=== PATIENT | female | born 1995 | race Caucasian/White ===

== ENCOUNTER 2021-04-25 00:15 | Outpatient (CLI) | payer OTHER, MEDICAID, SELFPAY ==
[2021-04-25 00:32] VITALS: BMI 35.1
[2021-04-25 00:33] VITALS: PULSE 82; RESP 16; O2SAT 99
[2021-04-25 00:34] VITALS: BP 110/73; PULSE 84; TEMP 36
[2021-04-25 00:52] LABS: Nitrazine Paper, PH Negative
[2021-04-25 01:08] LABS: Protein Urine Neg (Negative); Urine Appearance Clear (CLEAR); Urine Color Yellow (Yellow); pH Urine 5 (5-7)
[2021-04-25 01:09] LABS: Add Urine Culture? No; Bacteria Urine 2+ /hpf; Bilirubin Urine 1+ (Negative); Blood Urine Neg (Negative); Glucose Urine UA Norm (Normal); Ketones Urine 1+ (Negative); Leukocyte Esterase Urine Trace (Negative); Mucus Urine 3+ /hpf; Nitrate Urine Negative (Negative); RBC Urine 0-4 /hpf (0-2); Squamous Epithelial Cell Urine 15-25 /hpf (0-5); Urobilinogen Urine 4 mg/dL (Negative)
[2021-04-25 01:26] VITALS: TEMP 35.6
[2021-04-25 01:27] VITALS: BP 110/59; PULSE 77
[2021-04-25 01:45] VITALS: BP 110/59; PULSE 77; RESP 16; TEMP 36; O2SAT 98
== END 2021-04-25 01:45 | disposition home or self-care (01) ==
LOC: OPOB 00:24 → OBGYN 00:25
PROVIDERS: PCP Family Medicine; Visit Provider Family Medicine
DX: O26.899 Other specified pregnancy related conditions, unspecified trimester (principal); Z3A.00 Weeks of gestation of pregnancy not specified; R10.9 Unspecified abdominal pain
CPT/HCPCS: 59025; 81001; 83986; 99211

== ENCOUNTER 2021-04-26 09:27 | Inpatient (IN) | payer OTHER, MEDICAID, SELFPAY ==
[2021-04-26] VITALS (123 sets, daily range): BP systolic 73–245; BP diastolic 46–138; PULSE 51–181; RESP 16–18; TEMP 35.9–37.2; O2SAT 92–100
[2021-04-26 09:31] LABS: Nitrazine Paper, PH Positive
[2021-04-26 09:49] LABS: Basophils % 0.4 %; Eosinophils # 0.2 10^3/uL (0.0-0.8); Eosinophils % 2.3 %; Hemoglobin 11.2 g/dL (11.5-15.3); Lymphocytes # 1.7 10^3/uL (0.8-4.8); Lymphocytes % 20.2 %; Mean Corpuscular Hemoglobin 27.9 pg (28.0-34.0); Mean Corpuscular Volume 87.3 fL (81-99); Mean Platelet Volume 9.7 fL (7.4-10.4); Monocytes # 0.7 10^3/uL (0.2-0.9); Monocytes % 8.6 %; Neutrophils # 5.58 10^3/uL (1.8-7.7); Neutrophils % 68.3 %; Nucleated Red Blood Cells % 0 %; Platelet Count 260 10^3/cmm (130-400); Red Blood Count 4.01 10^6/uL (4.1-5.3); Red Cell Distribution Width 12.7 % (12.1-15.1); White Blood Count 8.2 10^3/uL (4.0-10.0)
[2021-04-26] MEDS: lactated ringers 1,000 ML 999 ML IV (10:01)
[2021-04-26] MEDS: fentaNYL 50 mcg/mL INJ 2mL IVP (10:01)
[2021-04-26] MEDS: ondansetron 2 mg/ML SDV 2 mL 4 MG IVP ×2 (10:10→14:02)
[2021-04-26] MEDS: dextrose 5%-lactated ringers 1,000 ML 125 ML IV ×2 (10:55→18:14)
--- NOTE | 2021-04-26 11:25 | P.ANESASSM_ITS ---
Pre-Anesthetic Assessment Pre-Anesthetic Assessment: Height/Weight: Height 1.57 m Weight 84.368 kg Temp Pulse Resp BP Pulse Ox 97.9 F 61 18 98/60 100 04/26/21 10:00 04/26/21 11:21 04/26/21 10:01 04/26/21 11:16 04/26/21 11:21 Was Beta Kunal taken within 24 hours: N/A Was Clonidine taken within 24 hours: N/A Social: Social History: No alcohol and No tobacco Exam: Pre-Anes Outpt Exam: alert and oriented x 3 Pulmonary: Pulmonary: None reported CV/HEM: CV/HEM: None reported : : None reported Hepatic: Hepatic: None reported GI: GI: None reported Metabolic: Metabolic: None reported Musc/skel: Musc/skel: None reported Neuropsych: Neuropsych: None reported Anesthetic Plan: ASA status: 1 Anesthesia: Regional (specify below) (Labor Epidural ) Meds/Allergies Current Medications: Current Medications Generic Name Dose Route Start Last Admin Trade Name Freq PRN Reason Stop Dose Admin Fentanyl 25 - 100 mcg 04/26/21 09:32 04/26/21 10:01 Fentanyl 50 Mcg/ Ml Inj 2ml IVP 25 mcg Q1H PRN Administration SEVERE PAIN Dextrose/Lactated Ringer's 1,000 mls @ 125 m ls/hr 04/26/21 09:45 04/26/21 10:55 Dextrose 5%-Lact ated Ringers IV 125 mls/hr .Q8H LAYNE Administration Ropivacaine 200 mg in 100 mls @ 13 mls/hr 04/26/21 09:45 04/26/21 10:55 Naropin Premix EPIDURAL 13 mls/hr .Q7H42M LAYNE Administration Lactated Ringer's 1,000 mls @ 999 m ls/hr 04/26/21 09:32 04/26/21 10:01 Lactated Ringers IV 999 mls/hr .Q1H1M PRN Administration See label comment s Ondansetron HCl 4 mg 04/26/21 09:32 04/26/21 10:10 Ondansetron 2 Mg /Ml Sdv 2 Ml IVP 4 mg Q4H PRN Administration NAUSEA AND VOMITI NG PFSH Anesthesia Female Reproductive History: : 3 Data Anesthesia CBC & Chem 7: 04/26/21 09:26 Other Labs: Laboratory Results - last 48 hr 04/26/21 09:26 WBC 8.2 RBC 4.01 L Hgb 11.2 L Hct 35.0 L MCV 87.3 MCH 27.9 L MCHC 32.0 RDW 12.7 Plt Count 260 MPV 9.7 Neut % (Auto) 68.3 Lymph % (Auto) 20.2 [place] % (Auto) 8.6 Eos % (Auto) 2.3 Baso % (Auto) 0.4 Neut # (Auto) 5.58 Lymph # (Auto) 1.7 [place] # (Auto) 0.7 Eos # (Auto) 0.2 Baso # (Auto) 0.0 Nucleated RBC % (auto) 0 Nucleated RBCs # 0.0 Cardiac Studies: 2 No Data to Display
--- NOTE | 2021-04-26 11:30 | ANES.PROC ---
Anesthesia Procedures Procedure/Date: 04/26/21 Epidural: Time Out Performed: Yes Consents Signed: Procedure Consent and NPO Consent Consent: requested by attending/covering physician Lumbar Level: L4-L5 Epidural position: sitting Epidural procedure: sterile prep of area, 1% lidocaine to numb the area, neg for paresthesia, test dose given, 1.5% xylocaine 1:200k epi, no systemic response and sterile dressing applied Additional Comments: Easy single pass without paresthesia or complication. Baseline BP 90-100 will therefore defer bolus and start continuous epidural infusion.
[2021-04-26] MEDS: ePHEDrine 50 mg/mL Inj 10 MG IVP (14:51)
--- NOTE | 2021-04-26 19:32 | PM.DELIVERY ---
Delivery Note: Date of delivery: 04/26/2021 This 26-year-old 3 now para 2 female with an EDC of 05/04/2021 had spontaneous rupture membranes this morning about 0800. She arrived to [facility] in active labor. She did have obvious rupture of membranes with nitrazine positive fluid. She was allowed to progress slowly throughout the day without problems. Her contractions were regular and did not require any augmentation. She did receive epidural anesthesia late morning and had a artificial rupture of membranes of the fore bag in the early afternoon. She then slowly dilated to complete cervical dilatation throughout the afternoon into the early evening. She then pushed for about 25 minutes and delivered by spontaneous vaginal livery a healthy, viable female infant at 1901. Upon delivery of the head she did have a mild shoulder dystocia. However, the posterior shoulder was easily found and rotated in a clockwise fashion bringing the baby out without difficulty. The mouth and nose were suctioned at the perineum followed by suctioning after delivery of the . The was then laid on mother's abdomen where after approximately 1 minute the cord was clamped and then cut by the infant's father. There was no nuchal cord and the cord had 3 blood vessels. Infant Apgars were 7 and 9 at 1 and 5 minutes respectively. The placenta delivered spontaneously at 1907 without problems and appeared to be intact. There was a very small second-degree episiotomy with minimal extension. This was repaired using layered surgical closure and Vicryl suture with epidural anesthesia present. The weighed 9 pounds 8 ounces. There were no complications and presently mother and are doing well. blood sugar was 55. Pre-Delivery Course: This patient was followed by this physician maternal blood type was A- with antibody screen was negative. Hepatitis B, hepatitis C, RPR and HIV were negative. Rubella was immune and group B strep was negative. Covid testing was not done yet I believe. There were no complications through her course. Maternal glucose screen was normal at 114. Delivery: Spontaneous vaginal delivery. Post-Delivery Status: Patient is doing well and will be followed for routine postdelivery care. A&P Assessment and plan (1) Normal spontaneous vaginal delivery: Patient will be monitored closely and will be followed for routine care. Status: Acute Coding Level of Care Code Acute [employer] Service Unit Operator for Chg Fwd Diagnoses Normal spontaneous vaginal delivery O80
[2021-04-26] MEDS: ibuprofen 800 mg tablet PO (21:26)
[2021-04-27] VITALS (17 sets, daily range): BP systolic 85–129; BP diastolic 46–75; PULSE 60–92; RESP 14
[2021-04-27] MEDS: HYDROcodone-acetaminophen 5-325 mg Tablet PO (04:07)
--- NOTE | 2021-04-27 07:15 | P.DS_ITS ---
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 She labored through the day and delivered last evening by spontaneous vaginal delivery a healthy, viable female . She has done well overnight with only mild bleeding and just a few clots. She has not been cramping and is ambulating well and tolerating a regular diet. It is felt that she will be stable to be discha rged home this evening after 's metabolic screen. Information Peripartum Data: Infant Delivery Method: Vaginal Physical Exam Const: COMMON NORMALS: no acute distress and healthy appearing HENMT: COMMON NORMALS: moist oral mucous membranes Resp: COMMON NORMALS: normal respiratory effort, No retractions and clear to auscultation bilaterally AUSCULTATION: clear to auscultation bilaterally Cardio: COMMON NORMALS: regular rate, regular rhythm and No murmurs present (Cardio) RATE: regular rate RHYTHM: regular rhythm GI: COMMON NORMALS: Soft to palpation and non-tender (Fundus is firm.) PALPATION: Yes Soft to palpation Extremity: COMMON NORMALS: normal to inspection, no calf tenderness and no pedal edema Neuro: COMMON NORMALS: moves all extremities, no focal motor deficits and no sensory deficits noted Psych: COMMON NORMALS: mental status grossly normal and cooperative Skin: COMMON NORMALS: no rashes or lesions noted GENERAL SKIN EXAM: no rashes or lesions noted Urinary Catheter Management^: Burgos: Cath Placed During This Visit: yes, but has since been removed by the nurse Reason for Continuing Indwelling Catheter: Decision to DC Catheter Urinary Catheter Date of Insertion: 04/26/21 Urinary Catheter Time of Insertion: 11:50 Date Urinary Catheter Removed: 04/26/21 Time Urinary Catheter Discontinued: 18:30 Discharge Data Data Completed and Pending: Pending at discharge Category Date Time Status Hemagram Timed Lab 04/27/21 07:30 Uncollected Labs from last 24 hours 04/26/21 09:26 WBC 8.2 RBC 4.01 L Hgb 11.2 L Hct 35.0 L MCV 87.3 MCH 27.9 L MCHC 32.0 RDW 12.7 Plt Count 260 MPV 9.7 Neut % (Auto) 68.3 Lymph % (Auto) 20.2 [place] % (Auto) 8.6 Eos % (Auto) 2.3 Baso % (Auto) 0.4 Neut # (Auto) 5.58 Lymph # (Auto) 1.7 [place] # (Auto) 0.7 Eos # (Auto) 0.2 Baso # (Auto) 0.0 Nucleated RBC % (a uto) 0 Nucleated RBCs # 0.0 Vitals: Last Vital Signs Temp 98.9 F 04/26/21 19:30 Pulse 60 04/27/21 06:22 Resp 14 04/27/21 01:07 BP 112/70 04/27/21 06:22 Pulse Ox 100 04/26/21 11:46 Discharge Plan Discharge Patient Disposition: Home Condition: Stable Prescriptions: New ibuprofen 800 mg Tablet 800 mg PO TID Qty: 90 RF: 1 DOK 100 mg Capsule 100 mg PO BID Qty: 60 RF: 2 -U 106.5-1 mg Capsule 1 cap PO DAILY Qty: 90 RF: 1 Discharge Orders: Discharge Order (Routine); Ordered 04/27/21 Ordered By: Yared Hurtado Referrals: Yared Hurtado MD [Primary Care Provider] - 6 Weeks Discharge Diet: Usual diet Discharge Activity: Resume usual activity Patient Instructions: Opioid Safety Discharge Attestations BITUMEN PLANT OPERATOR Time Spent in Discharge Care*: less than 30 min Specific Discharge Activities: Specific discharge activities: educating patient, documenting/other paperwork and evaluating patient/reviewing data Coding Level of Care Code Acute Broadcast News Producer for Chg Fwd Diagnoses Normal spontaneous vaginal delivery O80
[2021-04-27 07:53] LABS: Hematocrit 30.9 % (37.0-47.0); Hemoglobin 9.9 g/dL (11.5-15.3); Mean Corpuscular Hemoglobin 27.9 pg (28.0-34.0); Mean Platelet Volume 9.8 fL (7.4-10.4); Platelet Count 222 10^3/cmm (130-400); Red Blood Count 3.55 10^6/uL (4.1-5.3); Red Cell Distribution Width 12.5 % (12.1-15.1); White Blood Count 11.5 10^3/uL (4.0-10.0)
[2021-04-27] MEDS: ibuprofen 800 mg tablet PO ×2 (09:42→16:14)
[2021-04-27] MEDS: docusate sodium 100 mg Capsule PO (09:42)
[2021-04-27] MEDS: prenatal vitamin Capsule 1 CAP PO (09:42)
== END 2021-04-27 21:07 | disposition home or self-care (01) | DRG 807 ==
LOC: OPOB 09:28 → OBGYN 09:28
PROVIDERS: Admitting Provider Family Medicine; PCP Family Medicine; Visit Provider Family Medicine
DX: O70.1 Second degree perineal laceration during delivery (principal); Z37.0 Single live birth; Z3A.38 38 weeks gestation of pregnancy
CPT/HCPCS: 36415; 51702; 59025; 59409; 83986; 85025; 85027; 96374; 96375; 99211; J2405; J2795; J3010

== ENCOUNTER 2023-01-02 14:38 | Outpatient (CLI) | payer OTHER, SELFPAY ==
--- NOTE | 2023-01-02 | US_ITS ---
WS: [id number] OBSTETRICAL ULTRASOUND COMPLETE HISTORY: anatomy COMPARISON: None available. Single intrauterine gestation in Cephalic presentation. Cervix is Closed and normal length. Cervical length is 4.8 cm. Normal amount of amniotic fluid surrounds the fetus. Placenta: Posterior, no previa or abruption. Placenta grade 1 Heart: 153 BPM. Four chambers are identified. Suboptimal evaluation of the outflow tracts. Anatomy: Intracranial structures and spine are normal. kidneys, stomach and urinary bladd er are unremarkable. Abdominal wall, three-vessel cord and cord insertion site are normal. 4 extremities are present. profile: Unremarkable. Gender: Female. measurements: BPD = 4.6 cm = 19w5d; HC = 17.0 cm = 19w4d; AC = 14.2 cm = 19w4d; FL = 3.2 cm = 19w6d; EFW: 307 g. Not available. Biometry is internally concordant. AGA by ultrasound: 19w5d SAMEERA by ultrasound: 05/24/2023 US/US OB >= 14 weeks fetus [id number] IMPRESSION: 1. Single intrauterine gestation of 19w5d with an SAMEERA of 05/24/2023. 2. Suboptimal evaluation of the cardiac outflow tracts. The remaining anatomy is normal.
== END 2023-01-02 14:39 | disposition home or self-care (01) ==
PROVIDERS: PCP Family Medicine; Visit Provider Family Medicine
DX: Z34.02 Encounter for supervision of normal first pregnancy, second trimester (principal); Z3A.19 19 weeks gestation of pregnancy
CPT/HCPCS: 76805

== ENCOUNTER 2023-05-04 17:03 | Inpatient (IN) | payer OTHER, SELFPAY ==
[2023-05-04] VITALS (52 sets, daily range): BP systolic 74–131; BP diastolic 42–74; PULSE 58–118; RESP 16; O2SAT 81–100; BMI 37.8
[2023-05-04] MEDS: hyDROXYzine 25 mg Capsule 50 MG PO ×2 (14:51→20:51)
[2023-05-04 16:44] LABS: Basophils % 0.3 %; Eosinophils # 0.2 10^3/uL (0.0-0.8); Eosinophils % 1.7 %; Hematocrit 29.1 % (37.0-47.0); Hemoglobin 9.3 g/dL (11.5-15.3); Lymphocytes # 1.9 10^3/uL (0.8-4.8); Mean Corpuscular Hemoglobin 25.8 pg (28.0-34.0); Mean Corpuscular Volume 80.8 fl (81-99); Mean Platelet Volume 9.7 fL (7.4-10.4); Monocytes # 1.2 10^3/uL (0.2-0.9); Monocytes % 10.4 %; Neutrophils # 7.82 10^3/uL (1.8-7.7); Neutrophils % 69.1 %; Nucleated Red Blood Cells % 0 %; Platelet Count 320 10^3/cmm (130-400); White Blood Count 11.3 10^3/uL (4.0-10.0)
--- NOTE | 2023-05-04 17:09 | P.HP_ITS ---
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 Patient states that she is jessica every 3 to 10 minutes on arrival. Initial check was 4 cm which is unchanged from when she was last checked in the office. Patient was rechecked 1 hour later and she was 5 cm. Patient was jessica every 3 to 5 minutes. Patient denies any complications during this . The patient has had 2 other vaginal deliveries with the last delivery being a viable infant female at 10 pounds. GBS was positive. Present Details : 4 Para: 2 care: good care Ultrasounds: normal 1st trimester US and normal mid trimester US Obstetrical complications: none Medical complications OB: none Labs Blood type OB HPI: A (-) negative Rubella: Immune RPR: Negative GBS: Positive HBsAG: Negative Review of Systems General: Reports: 10 or more systems reviewed and unremarkable except in HPI and below Medications/Allergies Home Medications Medication Instructions Recorded Confirmed Last Taken Type docusate sodium 100 mg capsule 100 mg PO BID #60 caps 04/27/21 Unknown Rx (DOK) ibuprofen 800 mg tablet 800 mg PO TID #90 tabs 04/27/21 Unknown Rx multivitamin no.51-ferrous 1 cap PO DAILY #90 caps 04/27/21 Unknown Rx fumarate 106.5 mg-folic acid 1 mg capsule (-U) Allergies Allergy/AdvReac Type Severity Reaction Status Date / Time No Known Allergies Allergy Verified 04/25/21 00:49 Vitals/I&O/Wt Last Vital Signs Pulse 89 05/04/23 16:42 BP 112/62 05/04/23 16:42 Pulse Ox 97 05/04/23 14:39 Physical Exam Const: COMMON NORMALS: no acute distress and healthy appearing HENMT: COMMON NORMALS: moist oral mucous membranes Resp: COMMON NORMALS: normal respiratory effort, No retractions and clear to auscultation bilaterally AUSCULTATION: clear to auscultation bilaterally Cardio: COMMON NORMALS: regular rate, regular rhythm and No murmurs present (Cardio) RATE: regular rate RHYTHM: regular rhythm GI: OTHER: Gravid Extremity: COMMON NORMALS: normal to inspection, no calf tenderness and no pedal edema Neuro: COMMON NORMALS: moves all extremities, no focal motor deficits and no sensory deficits noted Psych: COMMON NORMALS: mental status grossly normal and cooperative Skin: COMMON NORMALS: no rashes or lesions noted GENERAL SKIN EXAM: no rashes or lesions noted Data 05/04/23 16:17 A&P Assessment and plan (1) Term , repeat: Patient appears to be going into active labor. Patient was admitted for further management. We will start ampicillin. Consider augmentation if labor does not continue to progress as expected. (2) GBS (group B Streptococcus carrier), +RV culture, currently : Attestations Medical Necessity Statement*: Admit for contractions and labor. Anticipate at least 1 midnight stay. Coding Level of Care Code Acute Code for Chg Fwd Diagnoses Term , repeat Z34.90 GBS (group B Streptococcus carrier), +RV culture, currently O99.820
[2023-05-04] MEDS: dextrose 5%-lactated ringers 1,000 ML 125 ML IV (17:24)
[2023-05-04] MEDS: ampicillin 2,000 MG in sodium chloride 0.9% (plus) 50 ML 100 MG IV (17:24)
[2023-05-04] MEDS: ampicillin 1,000 MG in sodium chloride 0.9% (plus) 50 ML 100 MG IV (20:49)
[2023-05-04] MEDS: lactated ringers 1,000 ML 999 ML IV ×2 (22:38→23:58)
[2023-05-05] VITALS (249 sets, daily range): BP systolic 63–173; BP diastolic 31–124; PULSE 55–148; RESP 15–18; TEMP 36.7–36.8; O2SAT 92–100
--- NOTE | 2023-05-05 00:14 | ANES.PREANE2 ---
Pre-Anesthetic Assessment Height/Weight: Height 1.57 m Weight 93.894 kg Pulse Resp BP Pulse Ox O2 Del Method 86 16 76/42 99 Room Air 05/05/23 00:12 05/04/23 16:34 05/05/23 00:12 05/05/23 00:09 05/04/23 16:15 Preop Diagnosis: Labor Pain GISEL Was Beta Kunal taken within 24 hours: N/A Was Clonidine taken within 24 hours: N/A Social No alcohol and No tobacco Exam alert, oriented x 3, clear to auscultation bilaterally and regular rate & rhythm Airway Submandibular: within normal limits Cervical ROM: within normal limits Mallampati: Class II Dentition: full History/ROS No significant history except as noted and No significant complaints Pulmonary None reported CV/HEM None reported None reported Hepatic None reported GI Gastroesophageal Reflux Disease Metabolic None reported Musc/skel None reported Neuropsych None reported Anesthetic Plan ASA status: 2 Anesthesia: Anesthesia Evaluation and Regional (specify below) Other: GISEL Risk of > 500 ml blood loss (7ml/kg in children): No Medications/Allergies Home Medications Medication Instructions Recorded Confirmed Last Taken Type docusate sodium 100 mg capsule 100 mg PO BID #60 caps 04/27/21 Unknown Rx (DOK) ibuprofen 800 mg tablet 800 mg PO TID #90 tabs 04/27/21 Unknown Rx multivitamin no.51-ferrous 1 cap PO DAILY #90 caps 04/27/21 Unknown Rx fumarate 106.5 mg-folic acid 1 mg capsule (-U) Allergies Allergy/AdvReac Type Severity Reaction Status Date / Time No Known Allergies Allergy Verified 04/25/21 00:49 Current Medications Generic Name Dose Route Start Last Admin Trade Name Cat PRN Reason Stop Dose Admin Hydroxyzine Pamoate 50 mg 05/04/23 14:32 05/04/23 14:51 Hydroxyzine 25 Mg Capsule PO 50 mg ONCE PRN Administration ANXIETY Hydroxyzine Pamoate 50 mg 05/04/23 16:34 05/04/23 20:51 Hydroxyzine 25 Mg Capsule PO 50 mg QID PRN Administration sleep, agitation or itching Dextrose/Lactated Ringer's 1,000 mls @ 125 mls/hr 05/04/23 16:45 05/04/23 22:39 Dextrose 5%-Lactated Ringers IV 0 mls/hr .Q8H LAYNE Infusion Lactated Ringer's 1,000 mls @ 999 mls/hr 05/04/23 16:34 05/04/23 23:58 Lactated Ringers IV 999 mls/hr .Q1H1M PRN Administration BLEEDING Ampicillin Sodium 1,000 mg/ 50 mls @ 100 mls/hr 05/04/23 20:45 05/04/23 21:20 Sodium Chloride IV Infused Q4H LAYNE Infusion Protocol Ropivacaine 100 mg in 50 mls @ 10 mls/hr 05/04/23 23:30 05/04/23 23:59 Naropin Syringe EPIDURAL 10 mls/hr .Q5H LAYNE Administration PFSH Anesthesia Female Reproductive History : 4 Data Anesthesia 05/04/23 16:17 Short CBC 05/04/23 Range/Units 16:17 WBC 11.3 H (4.0-10.0) 10^3/uL Hgb 9.3 L (11.5-15.3) g/dL Hct 29.1 L (37.0-47.0) % MCV 80.8 L (81-99) fl Plt Count 320 (130-400) 10^3/cmm Neut % (Auto) 69.1 % Neut # (Auto) 7.82 H (1.8-7.7) 10^3/uL Cardiac Studies: No Data to Display
--- NOTE | 2023-05-05 00:16 | ANES.PROC ---
Anesthesia Procedures Procedure/Date: 05/05/23 Epidural: Time Out Performed: Yes Consents Signed: Procedure Consent Consent: from patient Lumbar Level: L3-L4 Epidural position: sitting Epidural procedure: sterile prep of area, 1% lidocaine to numb the area, 18 g needle, neg for paresthesia, test dose given, 1.5% xylocaine 1:200k epi (4cc), 0.2% Ropivacaine bolus ml (3cc and Fentanyl 100mcg), placed PCEA, no systemic response, sterile dressing applied, L.U.D. no apparent complications and 0.2% Ropiavacaine @ mls/hr (10cc/hour) Additional Comments: MELANIE at 6 cm. Cath threaded 2.5 cm into epid space. Pt tolerated well.
[2023-05-05] MEDS: ePHEDrine 50 mg/mL Inj 10 MG IVP ×3 (00:39→01:17)
[2023-05-05] MEDS: dextrose 5%-lactated ringers 1,000 ML 999 ML IV (01:01)
[2023-05-05] MEDS: ampicillin 1,000 MG in sodium chloride 0.9% (plus) 50 ML 100 MG IV (01:02)
[2023-05-05] MEDS: dextrose 5%-lactated ringers 1,000 ML 125 ML IV ×2 (02:33→09:13)
[2023-05-05] MEDS: ampicillin 1,000 MG in sodium chloride 0.9% (plus) 50 ML 50 MG IV ×2 (06:09→10:38)
--- NOTE | 2023-05-05 07:47 | PM.OBGYPN ---
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 Patient continued to have significant contractions and became more uncomfortable. However she was only making very slow cervical change. Patient was augmented with Pitocin traction became more painful and frequent so she decided on epidural. Epidural was placed and the patient did have a drop in her blood pressure she received 3 doses of epinephrine. Patient is doing better now. Patient's last check was 6 cm dilation. Labor: Pain Control: epidural Dilation (cm): 6 Effacement (%): 70 Station: -3 Amniotic Membrane Status: Intact Monitor Mode: External Contraction Frequency: 3 Contraction Pattern: Regular Contraction Intensity: Moderate Status: Category I Vitals/I&O/Wt Last Vital Signs Pulse 81 05/05/23 07:44 Resp 16 05/04/23 16:34 BP 112/58 05/05/23 07:40 Pulse Ox 99 05/05/23 07:44 O2 Del Method Room Air 05/04/23 16:15 05/04/23 05/05/23 05/05/23 22:59 06:59 14:59 Intake Total 706.25 / 706.25 3142.933 / 3849.183 8.7 / 8.7 Balance 706.25 / 706.25 3142.933 / 3849.183 8.7 / 8.7 Weight last 48 hrs Weight 93.894 kg Physical Exam Const: COMMON NORMALS: no acute distress and healthy appearing HENMT: COMMON NORMALS: moist oral mucous membranes Resp: COMMON NORMALS: normal respiratory effort, No retractions and clear to auscultation bilaterally AUSCULTATION: clear to auscultation bilaterally Cardio: COMMON NORMALS: regular rate, regular rhythm and No murmurs present (Cardio) RATE: regular rate RHYTHM: regular rhythm GI: OTHER: Gravid Extremity: COMMON NORMALS: normal to inspection, no calf tenderness and no pedal edema Neuro: COMMON NORMALS: moves all extremities, no focal motor deficits and no sensory deficits noted Psych: COMMON NORMALS: mental status grossly normal and cooperative Skin: COMMON NORMALS: no rashes or lesions noted GENERAL SKIN EXAM: no rashes or lesions noted Urinary Catheter Management: Burgos: Cath Placed During This Visit: yes Reason for Continuing Indwelling Catheter: Accurate Measurement of Urinary Output in Critically Ill Patients Urinary Catheter Date of Insertion: 05/05/23 Urinary Catheter Time of Insertion: 05:25 Data 05/04/23 16:17 A&P Assessment and plan (1) GBS (group B Streptococcus carrier), +RV culture, currently : Continue ampicillin (2) Term , repeat: Continue augmentation with Pitocin. Continue routine labor management. Attestations Medical Necessity Statement*: Anticipate 2 midnight stay Coding Level of Care Code Acute Code for Chg Fwd Diagnoses GBS (group B Streptococcus carrier), +RV culture, currently O99.820 Term , repeat Z34.90
[2023-05-05] MEDS: hyDROXYzine 25 mg Capsule 50 MG PO (08:44)
--- NOTE | 2023-05-05 12:53 | PM.DELIVERY ---
Delivery Note: Date of delivery: May 05, 2023 Pre-delivery diagnoses: 28-year-old 4 para 2-0-1-2 at 38 weeks estimated gestational age presenting to the hospital in active labor Post-delivery diagnoses: Status post spontaneous vaginal delivery Procedure: Spontaneous vaginal delivery Delivering Physician: I am back Estimated blood loss (mL): 150 Pre-Delivery Course: The patient presented to the hospital in active labor. An epidural was placed. She was placed on group B strep protocol due to her GBS status. Her labor was augmented with Pitocin because her contractions began to space. An amniotomy was performed. She then progressed to complete without difficulty. Delivery: DELIVERY: The patient progressed to complete without difficulty. She delivered a female with a weight of 7 pounds 1 ounce with Apgars of 9, 9. The baby was delivered from the MARCELINO position and placed on the mother's abdomen. The cord was then clamped and cut. There was no nuchal cord. There was no meconium. The placenta and 3 vessel cord were delivered intact shortly thereafter. The perineum and vaginal vault were carefully examined. A superficial first-degree posterior midline tear was noted that did not require repair. Both the mother and the baby were in stable condition. Post-Delivery Status: Good A&P Assessment and plan (1) GBS (group B Streptococcus carrier), +RV culture, currently : (2) Term , repeat: (3) Spontaneous vaginal delivery: I anticipate routine care. Coding Level of Care Code Acute Code for Chg Fwd Diagnoses GBS (group B Streptococcus carrier), +RV culture, currently O99.820 Term , repeat Z34.90 Spontaneous vaginal delivery O80
[2023-05-05] MEDS: HYDROcodone-acetaminophen 5-325 mg Tablet PO ×2 (14:50→23:16)
[2023-05-05] MEDS: ibuprofen 800 mg tablet PO ×2 (14:50→21:44)
[2023-05-06 01:03] LABS: Hematocrit 26.4 % (37.0-47.0); Hemoglobin 8.3 g/dL (11.5-15.3); Mean Corpuscular HGB Conc 31.4 g/dL (30.0-36.0); Mean Corpuscular Hemoglobin 25.6 pg (28.0-34.0); Mean Corpuscular Volume 81.5 fl (81-99); Mean Platelet Volume 9.5 fL (7.4-10.4); Platelet Count 254 10^3/cmm (130-400); Red Blood Count 3.24 10^6/uL (4.1-5.3); Red Cell Distribution Width 14.8 % (12.1-15.1); White Blood Count 10.7 10^3/uL (4.0-10.0)
[2023-05-06 04:13] VITALS: BP 108/73; PULSE 91; RESP 16; TEMP 36.9; O2SAT 99
--- NOTE | 2023-05-06 05:12 | P.DS_ITS ---
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 An amniotomy was performed. She was placed on group B strep protocol. She progressed to complete and had an unremarkable delivery of a healthy female infant. The delivery was unremarkable. No repair was required. Her course was also unremarkable. Her bleeding was within normal limits. Her pain was well controlled. Her baby was bottle-fed with formula. Information Peripartum Data: Infant Delivery Method: Vaginal Physical Exam Narrative: The patient is alert. She appears comfortable. Her heart has a regular rate and rhythm with no murmurs appreciated. Lungs are clear to auscultation bilaterally. Her fundus is firm and below the umbilicus. Urinary Catheter Management: [place]: Cath Placed During This Visit: yes Reason for Continuing Indwelling Catheter: Accurate Measurement of Urinary Output in Critically Ill Patients Urinary Catheter Date of Insertion: 05/05/23 Urinary Catheter Time of Insertion: 05:25 Discharge Data Studies Completed and Pending Pending at discharge Category Date Time Status Complete Crossmatch Routine Lab 05/04/23 16:37 Results Maternal Hemorrhage Scrn Routine Lab 05/05/23 00:56 Received Rho D Immune Globulin Routine Lab 05/04/23 16:37 Results Type and Screen Routine Lab 05/04/23 16:37 Results Laboratory Results WBC 10.7 10^3/uL (4.0-10.0) H 05/06/23 00:56 RBC 3.24 10^6/uL (4.1-5.3) L 05/06/23 00:56 Hgb 8.3 g/dL (11.5-15.3) L 05/06/23 00:56 Hct 26.4 % (37.0-47.0) L 05/06/23 00:56 MCV 81.5 fl (81-99) 07/16/23 00:56 MCH 25.6 pg (28.0-34.0) L 05/06/23 00:56 MCHC 31.4 g/dL (30.0-36.0) 05/06/23 00:56 RDW 14.8 % (12.1-15.1) 05/06/23 00:56 Plt Count 254 10^3/cmm (130-400) 05/06/23 00:56 MPV 9.5 fL (7.4-10.4) 05/06/23 00:56 Neut % (Auto) 69.1 % 05/04/23 16:17 Lymph % (Auto) 17.0 % 05/04/23 16:17 [place] % (Auto) 10.4 % 05/04/23 16:17 Eos % (Auto) 1.7 % 05/04/23 16:17 Baso % (Auto) 0.3 % 05/04/23 16:17 Neut # (Auto) 7.82 10^3/uL (1.8-7.7) H 05/04/23 16:17 Lymph # (Auto) 1.9 10^3/uL (0.8-4.8) 05/04/23 16:17 [place] # (Auto) 1.2 10^3/uL (0.2-0.9) H 05/04/23 16:17 Eos # (Auto) 0.2 10^3/uL (0.0-0.8) 05/04/23 16:17 Baso # (Auto) 0.0 10^3/uL (0.0-0.1) 05/04/23 16:17 Nucleated RBC % (auto) 0 % 05/04/23 16:17 Nucleated RBCs # 0.0 /100WBC 05/04/23 16:17 Blood Type A Negative 05/04/23 16:37 Rho(D) Type Negative 05/04/23 16:37 Antibody Screen Negative 05/04/23 16:37 Vitals Last Vital Signs Temp 98.3 F 05/05/23 22:12 Pulse 86 05/05/23 22:12 Resp 15 05/05/23 22:12 BP 102/69 05/05/23 22:12 Pulse Ox 99 05/05/23 22:12 O2 Del Method Room Air 05/05/23 22:12 Discharge Plan Discharge Patient Disposition: Home Condition: Stable Prescriptions: New ibuprofen 800 mg Tablet 800 mg PO TID Qty: 45 0RF citalopram 20 mg tablet 20 mg PO DAILY Qty: 90 1RF Continued -U 106.5-1 mg Capsule 1 cap PO DAILY Qty: 90 1RF Discontinued ibuprofen 800 mg Tablet 800 mg PO TID Qty: 90 1RF docusate sodium [DOK] 100 mg Capsule 100 mg PO BID Qty: 60 2RF citalopram Discharge Orders: Discharge Order (Routine); Ordered 05/06/23 Ordered By: Joon Rosario Referrals: Joon Rosario MD [Physician] - 6 Weeks Discharge Diet: Usual diet Discharge Activity: Limit activity as instructed Patient Instructions: Opioid Safety Discharge Attestations SALES ENABLEMENT ANALYST Time Spent in Discharge Care*: less than 30 min Coding Level of Care Code Acute Code for Chg Fwd Diagnoses GBS (group B Streptococcus carrier), +RV culture, currently O99.820 Term , repeat Z34.90 Spontaneous vaginal delivery O80
--- NOTE | 2023-05-06 08:45 | ANE.PACU2 ---
Inpatient post-anesthesia follow up: Airway intact: Yes Vital signs: Temperature 98.5 F Pulse Rate 91 Respiratory Rate 16 Blood Pressure 108/73 Pulse Oximetry 99 Oxygen Delivery Me thod Room Air Oxygen Flow Rate Fraction of Inspir ed Oxygen Hydration adequate: Yes Nausea and vomiting: Yes Pain level: 1 Mental status: Baseline
[2023-05-06] MEDS: docusate sodium 100 mg Capsule PO (09:05)
[2023-05-06] MEDS: ibuprofen 800 mg tablet PO ×2 (09:05→15:11)
[2023-05-06 09:19] VITALS: BP 101/68; PULSE 78; RESP 16; TEMP 36.4; O2SAT 99
[2023-05-06 12:54] VITALS: TEMP 36.4
[2023-05-06 16:35] VITALS: BP 116/78; PULSE 88; RESP 16; TEMP 36.8; O2SAT 98
== END 2023-05-06 16:35 | disposition home or self-care (01) | DRG 807 ==
LOC: OPOB 17:03 → OBGYN 17:03
PROVIDERS: Admitting Provider Family Medicine; PCP Family Medicine; Visit Provider Family Medicine
DX: O99.824 Streptococcus B carrier state complicating childbirth (principal); Z37.0 Single live birth; O74.8 Other complications of anesthesia during labor and delivery; R03.1 Nonspecific low blood-pressure reading; Z3A.38 38 weeks gestation of pregnancy
CPT/HCPCS: 36415; 51702; 59025; 59409; 85025; 85027; 85460; 86850; 86900; 90384; 96374; 96375; 96376; 99211; J0290; J2795; J3010; J7040; J7120; J7121

== ENCOUNTER 2025-03-12 17:56 | Emergency (ER) | payer OTHER, SELFPAY ==
[2025-03-12 18:03] VITALS: BP 119/73; PULSE 106; RESP 17; TEMP 36.3; O2SAT 100; BMI 34.7
[2025-03-12 18:31] LABS: HCG Qualitative Urine. Negative (Negative)
[2025-03-12 18:39] LABS: Bilirubin Urine Negative (Negative); Blood Urine Negative (Negative); Glucose Urine UA Negative (Normal); Ketones Urine 1+ (Negative); Leukocyte Esterase Urine Trace (Negative); Nitrate Urine Negative (Negative); Protein Urine Trace (Negative); Urine Appearance Clear (CLEAR); Urine Color Yellow (Yellow)
[2025-03-12 18:43] LABS: Bacteria Urine Trace /hpf; Hyaline Casts Urine 0-4 /lpf; RBC Urine 0-2 /hpf (0-2)
[2025-03-12 18:50] LABS: Amphetamines Screen Urine Negative (Negative); Barbiturates Screen Urine Negative (Negative); Benzodiazepines Screen Urine Negative (Negative); Cocaine Screen Urine Negative (Negative); Opiate Screen Urine Negative (Negative); PCP Screen Urine Negative (Negative); THC Screen Urine Negative (Negative)
[2025-03-12 20:00] LABS: Basophils # 0.1 10^3/uL (0.0-0.1); Basophils % 0.6 %; Eosinophils # 0.3 10^3/uL (0.0-0.8); Eosinophils % 2.9 %; Hematocrit 37.5 % (36-47); Lymphocytes # 2.2 10^3/uL (0.8-4.8); Lymphocytes % 22.3 %; Mean Corpuscular HGB Conc 32.5 g/dL (30-55); Mean Corpuscular Hemoglobin 27.4 pg (27-33); Mean Corpuscular Volume 84.1 fl (85-98); Monocytes # 0.9 10^3/uL (0.2-0.9); Monocytes % 9.1 %; Neutrophils # 6.27 10^3/uL (1.8-7.7); Neutrophils % 64.6 %; Nucleated Red Blood Cells % 0 %; Platelet Count 369 10^3/cmm (157-399); Red Blood Count 4.46 10^6/uL (3.85-5.65); Red Cell Distribution Width 13.5 % (12.1-15.1)
[2025-03-12 20:13] LABS: Lactic Sepsis W/Reflex 0.8 mmol/L (0.5-2.2)
[2025-03-12 20:14] LABS: Alanine Aminotransferase 25 U/L (0-33); Albumin Level 3.6 g/dL (3.5-5.2); Alkaline Phosphatase 73 U/L (35-105); Aspartate Amino Transferase 12 U/L (0-32); C Reactive Protein 53.3 mg/L (0.0-4.9); Carbon Dioxide 25 mmol/L (22-29); Chloride 96 mmol/L (98-107); Globulin 3.7 g/dL (1.3-4.6); Glucose 85 mg/dL (65-115); Sodium 134 mmol/L (136-145); Total Bilirubin 0.2 mg/dL (0.15-1.2); Total Protein 7.3 g/dL (6.6-8.7)
[2025-03-12 20:26] LABS: Blood Urea Nitrogen 13 mg/dL (6-20); Calcium 8.4 mg/dL (8.5-10.5); Creatinine Clr Calc Pharmacy 122.9844; Glomerular Filtration Rate 100.4 mL/min (90-130); Osmolality Calculated 277 mOsm/kg (285-295)
[2025-03-12 21:09] LABS: Lipase 391 U/L (13-60)
[2025-03-13 01:29] VITALS: BP 109/75; PULSE 99; RESP 16; O2SAT 99
[2025-03-13 02:44] VITALS: BP 123/78; PULSE 88; RESP 18; O2SAT 99
[2025-03-13 03:43] VITALS: BP 110/73; PULSE 68; RESP 14; O2SAT 95
--- NOTE | 2025-03-13 03:44 | CTR_ITS ---
PROCEDURE INFORMATION: Exam: CT Abdomen And Pelvis With Contrast Exam date and time: 03/13/2025 3:58 AM Age: 29 years old Clinical indication: Abdominal pain; Generalized; Additional info: Abdominal pain with increased lipase. Rule out abscess TECHNIQUE: Imaging protocol: Computed tomography of the abdomen and pelvis with contrast. Radiation optimization: All CT scans at this facility use at least one of these dose optimization techniques: automated exposure control; mA and/or kV adjustment per patient size (includes targeted exams where dose is matched to clinical indication); or iterative reconstruction. Contrast material: OMNI 350; Contrast volume: 100 ml; Contrast route: INTRAVENOUS (IV); COMPARISON: US pelvic complete* [id number] 09/04/2023 1:38 PM RADIATION DOSE METRICS: Total DLP (mGy-cm): 766.4 FINDINGS: Liver: Normal. No mass. Gallbladder and biliary ducts: Normal. No calcified stones. No ductal dilation. Pancreas: Normal. No ductal dilation. Spleen: Normal. No splenomegaly. Adrenal glands: Normal. No mass. Kidneys and ureters: Normal. No hydronephrosis. Stomach and bowel: Circumferential wall thickening in the ascending and proximal transverse colon. Appendix: No evidence of appendicitis. Intraperitoneal space: Unremarkable. No free air. No significant fluid collection. Vasculature: Unremarkable. No abdominal aortic aneurysm. Lymph nodes: Unremarkable. No enlarged lymph nodes. Urinary bladder: Unremarkable as visualized. Reproductive: 2.4 cm round fatty lesion in the right ovary. Bones/joints: Unremarkable. No acute fracture. Soft tissues: Unremarkable. CT/CT abdomen pelvis w con* [id number] IMPRESSION: 1. Circumferential wall thickening in the ascending and proximal transverse colon. Presumed infectious or inflammatory colitis. 2. 2.4 cm round fatty lesion in the right ovary. Findings most compatible with dermoid cyst. Consider follow-up nonemergent pelvic ultrasound.
[2025-03-13] MEDS: iohexol 350 mg/mL 500 mL Btl (per mL) IV (04:00)
--- NOTE | 2025-03-13 04:26 | ED_ITS ---
HPI - Abdominal Pain 2 General: Chief Complaint: Abdominal Pain Stated Complaint: abdominal pain, SOB Time Seen by Provider: 03/13/25 03:44 History of Present Illness: Sylvia Caceres presents to the ER with symptoms of pancreatitis that began approximately 8 days ago. The patient initially experienced generalized body aches, including soreness in her neck, back, shoulders, and abdomen, accompanied by extreme fatigue. Five days ago, while attempting to go on a trip, the patient's condition worsened significantly. She developed severe diarrhea with some vomiting, leading to an inability to eat due to gastrointestinal distress. Associated symptoms included blurry vision, tingling in the face and lips, and shortness of breath upon exertion. The patient reports that her urine has been darker than usual, though still yellow and not brown. Two days prior to the ER visit, the patient experienced severe abdominal pain that left her bedridden and doubled over. She sought medical attention in [place], [place], where lab tests revealed abnormal liver levels. The patient denies alcohol consumption and use of prescription or illicit drugs. Today, the patient reports feeling somewhat better, though she still experiences soreness and describes feeling as if she's been hit by a car. Her abdominal pain has improved, and she is now able to tolerate oral intake better than in previous days. The patient visited a doctor in [place] who advised her to go to the ER if symptoms persisted. This current ER visit is a follow-up to that recommendation. Related Data Previous Rx's ?Medication ?Instructions ?Recorded multivitamin no.51-ferrous 1 cap PO DAILY #90 caps 05/11 fumarate 106.5 mg-folic acid 1 mg capsule (-U) citalopram 20 mg tablet 20 mg PO DAILY #90 tabs 04/21 04/13 ibuprofen 800 mg tablet 800 mg PO TID #45 tabs 05/06 Allergies Allergy/AdvReac Type Severity Reaction Status Date / Time No Known Allergies Allergy Verified 05/05/23 13:00 Review of Systems 2 General: Reports: 10 or more systems reviewed and unremarkable except in HPI and below PFSH ED 2 PFSH: Medical History (Updated 03/13/25 @ 05:46 by Rachid Mott DO) Spontaneous vaginal delivery Term , repeat Physical Exam 2 Const: COMMON NORMALS: no acute distress, patient oriented x3, healthy appearing, alert and well nourished HENMT: COMMON NORMALS: normocephalic HEAD & SCALP: normocephalic Eye: COMMON NORMALS: EOMs intact bilaterally Neck/C-Spine: COMMON NORMALS: full ROM and supple Resp: COMMON NORMALS: normal respiratory effort, No retractions and clear to auscultation bilaterally AUSCULTATION: clear to auscultation bilaterally Cardio: COMMON NORMALS: regular rate, regular rhythm, No gallops present (Cardio) and No murmurs present (Cardio) RATE: regular rate RHYTHM: r egular rhythm GI: OTHER: Soft. Mild tenderness noted in right upper quadrant. No pain elicited in left upper quadrant, epigastrium, or lower quadrants. No rebound or guarding Extremity: GENERAL: Yes normal exam except as noted Neuro: COMMON NORMALS: patient oriented x3 SENSORIUM/ORIENTATION: Yes alert Skin: COMMON NORMALS: no rashes or lesions noted GENERAL SKIN EXAM: no rashes or lesions noted Course 2 Vital Signs: Vital signs: Vital Signs Temperature 97.3 F L 03/12/25 18:03 Pulse Rate 70 03/13/25 06:14 Respiratory Rate 18 03/13/25 06:14 Blood Pressure 104/71 03/13/25 06:14 Pulse Oximetry 98 03/13/25 06:14 Oxygen Delivery Me thod Room Air 03/13/25 03:43 MDM - Abdominal Pain Medical Decision Making Patient presents with symptoms consistent with acute pancreatitis, including severe abdominal pain, nausea, vomiting, and diarrhea. The onset of symptoms began 8 days ago with generalized body aches and fatigue, progressing to severe gastrointestinal symptoms [address] scan with contrast was performed negative for signs of pancreatitis or abscess. Labs showed low potassium, likely due to vomiting and diarrhea. Liver enzymes and bilirubin are currently normal, though patient reports abnormal liver function tests 2 days prior. The etiology is likely idiopathic or infectious, as the patient denies alcohol use or drug intake. Gallstone pancreatitis is less likely due to normal liver enzymes and bilirubin. The patient appears to be in the resolving phase of acute pancreatitis based on symptom improvement. - Administer IV fluids for hydration - Pain and nausea controlled without medications - Initiate early refeeding - Educate patient on the risk of recurrent pancreatitis and the importance of seeking prompt medical attention for similar symptoms in the future CT findings are consistent with infectious colitis. She did have an incidental finding of a 2.4 cm round fatty lesion on the right ovary. Counseled the patient to get a nonemergent ultrasound to better characterize the ovarian lesion. Patient was p.o. challenged and able to keep down water. Show she had partial repletion of potassium in the emergency department. Counseled her to continue eating potassium rich foods at home. Patient did not have an elevated white count, has a normal hemoglobin, normal platelets, normal kidney function, liver enzymes were normal. She did have a elevated C-reactive protein. Encouraged her to follow-up with her primary care physician regarding these incidental findings. Return precautions were discussed and the patient was discharged home in good condition. Lab Data 03/12/25 19:48 03/12/25 19:48 Labs/Radiology: Radiology Impressions Abdomen/Pelvis CT 03/13/25 03:44 IMPRESSION: 1. Circumferential wall thickening in the ascending and proximal transverse colon. Presumed infectious or inflammatory colitis. 2. 2.4 cm round fatty lesion in the right ovary. Findings most compatible with dermoid cyst. Consider follow-up nonemergent pelvic ultrasound. Laboratory Results WBC 9.70 10^3/uL (3.29-11.43) 03/12/25 19:48 RBC 4.46 10^6/uL (3.85-5.65) 03/12/25 19:48 Hgb 12.20 g/dL (11.27-16.99) 03/12/25 19:48 Hct 37.5 % (36-47) 03/12/25 19:48 MCV 84.1 fl (85-98) L 03/12/25 19:48 MCH 27.4 pg (27-33) 03/12/25 19:48 MCHC 32.5 g/dL (30-55) 03/12/25 19:48 RDW 13.5 % (12.1-15.1) 03/12/25 19:48 Plt Count 369 10^3/cmm (157-399) 03/12/25 19:48 MPV 9.0 fL (7.4-10.4) 03/12/25 19:48 Neut % (Auto) 64.6 % 03/12/25 19:48 Lymph % (Auto) 22.3 % 03/12/25 19:48 [place] % (Auto) 9.1 % 03/12/25 19:48 Eos % (Auto) 2.9 % 03/12/25 19:48 Baso % (Auto) 0.6 % 03/12/25 19:48 Neut # (Auto) 6.27 10^3/uL (1.8-7.7) 03/12/25 19:48 Lymph # (Auto) 2.2 10^3/uL (0.8-4.8) 03/12/25 19:48 [place] # (Auto) 0.9 10^3/uL (0.2-0.9) 03/12/25 19:48 Eos # (Auto) 0.3 10^3/uL (0.0-0.8) 03/12/25 19:48 Baso # (Auto) 0.1 10^3/uL (0.0-0.1) 03/12/25 19:48 Nucleated RBC % (auto) 0 % 03/12/25 19:48 Nucleated RBCs # 0.0 /100WBC 03/12/25 19:48 Sodium 134 mmol/L (136-145) L 03/12/25 19:48 Potassium 3.0 mmol/L (3.5-5.1) L 03/12/25 19:48 Chloride 96 mmol/L (98-107) L 03/12/25 19:48 Carbon Dioxide 25 mmol/L (22-29) 03/12/25 19:48 Anion Gap 16.0 (5-19) 03/12/25 19:48 BUN 13 mg/dL (6-20) 03/12/25 19:48 Creatinine 0.7 mg/dL (0.5-0.9) 03/12/25 19:48 GFR Calculation 100.4 mL/min (90-130) 03/12/25 19:48 Glucose 85 mg/dL (65-115) 03/12/25 19:48 Calculated Osmolality 277 mOsm/kg (285-295) L 03/12/25 19:48 Lactic Acid 0.8 mmol/L (0.5-2.2) 03/12/25 19:48 Calcium 8.4 mg/dL (8.5-10.5) L 03/12/25 19:48 Total Bilirubin 0.2 mg/dL (0.15-1.2) 03/12/25 19:48 AST 12 U/L (0-32) 03/12/25 19:48 ALT 25 U/L (0-33) 03/12/25 19:48 Alkaline Phosphatase 73 U/L (35-105) 03/12/25 19:48 C-Reactive Protein 53.3 mg/L (0.0-4.9) H 03/12/25 19:48 Total Protein 7.3 g/dL (6.6-8.7) 03/12/25 19:48 Albumin 3.6 g/dL (3.5-5.2) 03/12/25 19:48 Globulin 3.7 g/dL (1.3-4.6) 03/12/25 19:48 Lipase 391 U/L (13-60) H 03/12/25 19:48 HCG, Qual Negative (Negative) 03/12/25 18:00 Urine Color Yellow (Yellow) 03/12/25 18:00 Urine Appearance Clear (CLEAR) 03/12/25 18:00 Urine pH 6.0 (5-7) 03/12/25 18:00 Ur Specific [place] 1.030 (1.005-1.030) 03/12/25 18:00 Urine Protein Trace (Negative) A 03/12/25 18:00 Urine Glucose (UA) Negative (Normal) 03/12/25 18:00 Urine Ketones 1+ (Negative) H 03/12/25 18:00 Urine Blood Negative (Negative) 03/12/25 18:00 Urine Nitrate Negative (Negative) 03/12/25 18:00 Urine Bilirubin Negative (Negative) 03/12/25 18:00 Urine Urobilinogen 1.0 mg/dL (Negative) 03/12/25 18:00 Ur Leukocyte Esterase Trace (Negative) A 03/12/25 18:00 Urine RBC 0-2 /hpf (0-2) 03/12/25 18:00 Urine WBC 6-10 /hpf (0-5) 03/12/25 18:00 Ur Squamous Epith Cells 11-20 /hpf (0-5) H 03/12/25 18:00 Amorphous Sediment Not Reportable 03/12/25 18:00 Urine Bacteria Trace /hpf (NONE) 03/12/25 18:00 Hyaline Casts 0-4 /lpf H 03/12/25 18:00 Urine Opiates Screen Negative ng/mL (Negative) 03/12/25 18:00 Ur Barbiturates Screen Negative ng/mL (Negative) 03/12/25 18:00 Ur Phencyclidine Scrn Negative ng/mL (Negative) 03/12/25 18:00 Ur Amphetamines Screen Negative ng/mL (Negative) 03/12/25 18:00 U Benzodiazepines Scrn Negative ng/mL (Negative) 03/12/25 18:00 Urine Cocaine Screen Negative ng/mL (Negative) 03/12/25 18:00 U Marijuana (THC) Screen Negative ng/mL (Negative) 03/12/25 18:00 All radiology interpretation(s) finalized by discharge Discharge Plan Discharge Patient Disposition: Home Clinical Impression: Infectious colitis, Acute hypokalemia Pancreatitis Qualifiers: Chronicity: acute Pancreatitis type: idiopathic Acute pancreatitis complication: no infection or necrosis Qualified Code(s): K85.00 - Idiopathic acute pancreatitis without necrosis or infection Condition: Stable Prescriptions: No Action -U 106.5-1 mg Capsule 1 cap PO DAILY Qty: 90 1RF ibuprofen 800 mg Tablet 800 mg PO TID Qty: 45 0RF citalopram 20 mg tablet 20 mg PO DAILY Qty: 90 1RF Discharge Orders: Discharge ED (Routine); Ordered 03/13/25 Ordered By: Rachid [employer] Referrals: Yared Hurtado MD [Primary Care Provider, [facility]] Discharge Diet: Advance as tolerated Discharge Activity: Resume usual activity Patient Instructions: Opioid Safety, Pain Management Activity Restrictions/Additional Instructions: Please eat potassium rich foods as your potassium was slightly low. Follow-up with your primary care physician for any persistent symptoms. Return to the emergency department with any new or worsening symptoms. Additionally, follow- up with your primary care physician for the incidental finding on your ovary with a outpatient ultrasound. 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
[2025-03-13] MEDS: lidocaine 1% 5 ML in potassium chloride premix 100 ML 26.25 ML IV (04:29)
[2025-03-13] MEDS: sodium chloride 0.9% 1,000 ML 999 ML IV (04:30)
[2025-03-13 06:14] VITALS: BP 104/71; PULSE 70; RESP 18; O2SAT 98
== END 2025-03-13 06:16 | disposition home or self-care (01) ==
PROVIDERS: Emergency Medicine; Emergency Provider General Practice; PCP Family Medicine
DX: A09 Infectious gastroenteritis and colitis, unspecified (principal); K85.00 Idiopathic acute pancreatitis without necrosis or infection; E87.6 Hypokalemia; R06.02 Shortness of breath
CPT/HCPCS: 36415; 74177; 80053; 80306; 81001; 81025; 83605; 83690; 85025; 86140; 87040; 96374; 99285; J3480; J7030; J9999